=== PATIENT | male | born 1935 | race Caucasian/White ===

== ENCOUNTER 2021-10-03 13:56 | Emergency (ER) | payer MEDICARE ==
[2021-10-03] MEDS ORDERED: PREDNISONE20 MG PO (18:01)
[2021-10-03] MEDS ORDERED: XYLOCAINE 5% OI35 GM TOP (18:01)
== END 2021-10-03 18:20 | disposition home or self-care (01) ==
LOC: ER1 13:56
DX: M54.41 Lumbago with sciatica, right side (principal); M51.36 Other intervertebral disc degeneration, lumbar region; I10 Essential (primary) hypertension; Z90.89 Acquired absence of other organs
CPT/HCPCS: 72131; 96372; 99283; J2930

== ENCOUNTER 2021-11-21 18:24 | Emergency (ER) | payer MEDICARE ==
[~2021-11-21 18:24] MED LIST: PREDNISONE20 MG PO; XYLOCAINE 5% OI35 GM TOP
[2021-11-21 20:52] LABS: HEMOGLOBIN 11.3 gm/dl (14.0-17.5); RED BLOOD COUNT 3.57 M/UL (4.20-5.50); WHITE BLOOD COUNT 8.3 K/UL (4.5-11.0)
[2021-11-21 21:26] LABS: BUN/CREATININE RATIO 26 (0-10)
[2021-11-22 02:37] LABS: HEMOGLOBIN 11.1 gm/dl (14.0-17.5); RED BLOOD COUNT 3.55 M/UL (4.20-5.50); WHITE BLOOD COUNT 8.4 K/UL (4.5-11.0)
[2021-11-22 03:19] LABS: BUN/CREATININE RATIO 27 (0-10)
== END 2021-11-22 04:52 | disposition home or self-care (01) ==
LOC: ER1 18:24
PROVIDERS: Family Medicine; Physician Assistant
DX: R06.02 Shortness of breath (principal); E78.5 Hyperlipidemia, unspecified; I10 Essential (primary) hypertension; Z20.822 Contact with and (suspected) exposure to COVID-19
CPT/HCPCS: 70450; 71046; 80053; 82550; 82553; 83874; 83880; 84439; 84443; 84484; 85025; 93005; 99285; U0002

== ENCOUNTER 2022-03-14 18:55 | Emergency (ER) | payer MEDICARE ==
[2022-03-14 19:53] LABS: HEMOGLOBIN 11.8 gm/dl (14.0-17.5); RED BLOOD COUNT 3.76 M/UL (4.20-5.50); WHITE BLOOD COUNT 7.1 K/UL (4.5-11.0)
== END 2022-03-14 22:56 | disposition left against medical advice (07) ==
LOC: ER1 18:55
PROVIDERS: Family Medicine
DX: R06.02 Shortness of breath (principal); I10 Essential (primary) hypertension
CPT/HCPCS: 71045; 80053; 82550; 82553; 84484; 85025; 93005; 99281